=== PATIENT | female | born 1965 | race Caucasian/White ===

== ENCOUNTER 2020-09-07 09:45 | Outpatient (REF) | payer OTHER, SELFPAY ==
[2020-09-10 18:32] LABS: HPV mRNA E6/E7 rflx Not Detected (Not Detected)
== END 2020-09-07 09:46 | disposition home or self-care (01) ==
LOC: HO.LAB 09:45
PROVIDERS: PCP Nurse Practitioner Family; Visit Provider Advanced Practice Midwife
DX: Z12.4 Encounter for screening for malignant neoplasm of cervix (principal)
CPT/HCPCS: 36415; 87624; 88141; 88142

== ENCOUNTER 2020-09-21 13:17 | Outpatient (REF) | payer OTHER, SELFPAY ==
--- NOTE | 2020-09-21 13:22 | MM_ITS ---
EXAMINATION: MM SCREENING DIGITAL BREAST TOMOSYNTHESIS, BILATERAL CLINICAL INFORMATION: Screening. Asymptomatic. The lifetime risk of breast cancer based on the Tyrer-Cuzick Model is 20.3%. COMPARISON: Mammography: 05/13/2019, 09/15/2016 TECHNIQUE: Digital breast tomosynthesis is performed in both the craniocaudal and mediolateral oblique views along with computer-aided detection (CAD). Synthesized 2D images are generated from the tomosynthesis. FINDINGS: There are scattered areas of fibroglandular density (ACR BI-RADS breast composition Category b). There are no significant masses, abnormal calcifications, or other abnormalities. Parenchymal pattern is similar to prior studies. The skin contours are smooth. The axilla are unremarkable. MM/MM tomosynthesis screening BI IMPRESSION: No mammographic evidence of malignancy. ASSESSMENT: BI-RADS 1: Negative RECOMMENDATION: 1. Routine annual mammography screening. 2. The lifetime risk of breast cancer based on the Tyrer-Cuzick Model is 20.3%. Additional annual adjunct screening with breast MRI may be of benefit in women with a risk score of 20% or greater. This patient's information was entered into a reminder system with a target due date for their next mammogram.
== END 2020-09-21 13:18 | disposition home or self-care (01) ==
LOC: HO.MAMMO 13:17
PROVIDERS: PCP Nurse Practitioner Family; Visit Provider Nurse Practitioner Family
DX: Z12.31 Encounter for screening mammogram for malignant neoplasm of breast (principal)
CPT/HCPCS: 77063; 77067

== ENCOUNTER 2021-05-24 14:08 | Outpatient (REF) | payer OTHER, SELFPAY | END 2021-05-24 14:09 | disposition home or self-care (01) | LOC: HO.LNP 14:08 | PROVIDERS: Visit Provider Physician Assistant Medical | DX: Z20.822 Contact with and (suspected) exposure to COVID-19 (principal) | CPT/HCPCS: U0003; U0005 ==

== ENCOUNTER 2023-04-17 07:36 | Outpatient (REF) | payer OTHER, SELFPAY ==
[2023-04-17 11:53] LABS: MANUAL DIFF FLAG NO
[2023-04-17 11:54] LABS: Appearance Urine Clear; Color Urine Yellow; Glucose Urine UA Negative (Negative); Leukocyte Esterase Urine Negative (Negative); Nitrite Urine Negative (Negative); Specific Gravity - Urine <= 1.005 (1.005-1.025); Urine Blood Negative (Negative); Urine Ketones Negative (Negative); Urine Protein Negative (Neg-Trace)
[2023-04-17 12:00] LABS: Basophils Absolute Auto 0.1 X10*3/uL (0.0-0.2); Basophils Percent Auto 0.8 % (0-2); Eosinophils Absolute Auto 0.3 X10*3/uL (0.0-0.4); Eosinophils Percent Auto 3.8 % (0-4); Hematocrit 44.9 % (37.0-47.0); Hemoglobin 14.6 g/dl (12.0-16.0); Imm Gran Abs Auto 0.03 X10*3/uL (0.00-0.03); Imm Gran Pct Auto 0.4 % (0.0-0.4); Lymphocytes Absolute Auto 2.7 X10*3/uL (1.2-4.9); Lymphocytes Percent Auto 34.3 % (20-40); Mean Corpuscular HGB Conc 32.5 g/dl (31.0-35.0); Mean Corpuscular Hemoglobin 27.7 pg (27.0-33.0); Mean Platelet Volume 10.4 fL (9.4-12.3); Monocytes Absolute Auto 0.5 X10*3/uL (0.1-1.2); Monocytes Percent Auto 6.5 % (2-11); Neutrophils Absolute Auto 4.3 x10*3/uL (2.0-8.3); Neutrophils Percent Auto 54.2 % (45-73); Platelet Count 373 X10*3/uL (160-400); Red Blood Count 5.28 X10*6/uL (4.20-5.50); Red Cell Distribution Width 12.8 % (11.0-16.0)
[2023-04-17 12:11] LABS: Estimated Average Glucose 192 mg/dL; Hemoglobin A1c % 8.3 % (<6.0)
[2023-04-17 12:22] LABS: Alanine Aminotransferase 9 U/L (0-31); Albumin Level 3.9 g/dL (3.5-5.0); Alkaline Phosphatase 71 U/L (39-117); Anion Gap 12 (12-20); Aspartate Amino Transferase 12 U/L (5-31); Bilirubin Total 0.2 mg/dL (0.0-1.0); Blood Urea Nitrogen 9 mg/dL (9-16); Calcium 9.8 mg/dL (8.4-10.2); Carbon Dioxide 30 mmol/L (22-29); Chloride 102 mmol/L (96-108); Cholesterol 202 mg/dL (<200); Estimated Glomerular Filt Rate > 60; Glucose Fasting 213 mg/dL (60-99); HDL Cholesterol 59 mg/dL (>40); LDL Cholesterol Calculated 124 mg/dL (<100); Potassium 4.1 mmol/L (3.3-5.1); Sodium 140 mmol/L (135-145); Total Protein 6.7 g/dL (6.5-8.0); Triglycerides 95 mg/dL (<150)
[2023-04-17 12:34] LABS: Vitamin D 25-OH Total 38.5 ng/mL (>30)
[2023-04-17 12:56] LABS: Creatinine Urine 25.21 mg/dL; Microalbumin Urine < 5.0 mg/L
== END 2023-04-17 07:37 | disposition home or self-care (01) ==
LOC: HO.HMGCLDS 07:36
PROVIDERS: PCP Nurse Practitioner Family; Visit Provider Nurse Practitioner Family
DX: E11.9 Type 2 diabetes mellitus without complications (principal); E78.5 Hyperlipidemia, unspecified; Z78.0 Asymptomatic menopausal state
CPT/HCPCS: 36415; 80053; 80061; 81003; 82043; 82306; 83036; 84443; 85025

== ENCOUNTER 2023-06-27 08:35 | Outpatient (AMB) | payer OTHER, SELFPAY ==
[2023-06-27 08:50] VITALS: BP 112/70; PULSE 85; O2SAT 98; BMI 32.1
--- NOTE | 2023-06-27 08:50 | A.OFFPC_ITS ---
Vital Signs 06/27/23 08:50 Height 5 ft 3 in Weight 181 lb BMI 32.1 BP 112/70 Blood Pressure Location Lt brachial Position Sitting Pulse 85 Pulse Source Pulse Oximeter Pulse Oximetry (%) 98 Oxygen Delivery Method Room Air Intake Visit Reasons: follow up dm+ NEEDS PHQ9/THRIVE Allergies No Known Allergies [No Known Allergies*] Allergy (Verified 06/27/23 08:50) Medication List - Last Reconciled 06/27/23 by GORGE Castro blood sugar diagnostic As directed dulaglutide 4.5 mg (0.5 mL) subcut QWEEK 30 days fluoxetine 20 mg PO QAM 90 days metformin 1,000 mg PO BID pravastatin 10 mg PO BEDTIME Tobacco use date assessed: 06/27/23 Dental Screening Dental Screen Date: 06/27/23 Did you have a dental visit in the last 12 months?: No Was dental information given to patient?: Patient has dentist HPI follow up dm+ NEEDS PHQ9/THRIVE HPI Details Pt is a diabetic. Last A1C was 8.3, microalbumin is up to date. Denies polyuria, polydipsia, and neuropathy. Pt denies any signs and symptoms of hypoglycemia and does know how to correct it. Pt reports her blood sugar has been in the 90s-150s. Pt reports that she stopped taking atorvastatin. Will start pravastatin 10mg. Eye exam is scheduled. refuses flu/pneumo vaccines. FORMERLY [facility], [facility]–1983 Medical History Acute respiratory failure Intra-abdominal abscess Screening for cervical cancer Trigger thumb, left thumb Cortical age-related cataract of both eyes Diabetes Depression Dyslipidemia Surgical History H/O thumb surgery Leg fracture, left History of tubal ligation History of section Family History Father History of heart attack CVD (cardiovascular disease) Mother Myocardial infarction S/P triple vessel bypass S/P knee replacement Hip fracture CVD (cardiovascular disease) Macular degeneration History of high blood pressure Brother Type 2 diabetes mellitus Sister Type 2 diabetes mellitus Sister Breast cancer Other Substance use disorder Social History Housing: Apartment Alcohol intake: current Patient Tobacco Use Status: Current everyday Tobacco user (1 pack per month) Tobacco use type: Cigarette Cigarettes Per Day: 1 e-Cigarette/Vaping Use: Never Used Second Hand Smoke Exposure: No Current occupational status: employed Cognitive needs: No Hearing needs: No Vision needs: Yes Questionnaire PHQ-9 Over the last 2 weeks, how often have you been bothered by any of the following problems? 1. Little interest or pleasure in doing things: several days 2. Feeling down, depressed, or hopeless: several days 3. Trouble falling or staying asleep, or sleeping too much: several days 4. Feeling tired or having little energy: several days 5. Poor appetite or overeating: several days 6. Feeling bad about yourself - or that you are a failure or have let yourself or your family down: not at all 7. Trouble concentrating on things, such as reading the newspaper or watching television: not at all 8. Moving or speaking so slowly that other people could have noticed. Or the opposite - being so fidgety or restless that you have been moving around a lot more than usual: not at all 9. Thoughts that you would be better off or of hurting yourself in some way: not at all Total score: 5 Source: Developed by Drs. Edgardo Lazar, Jeanna Vázquez, Charles Barlow and colleagues, with an educational patel from [employer]. Thrive Questionnaire Date Thrive assessed: 06/27/23 I am a: Patient What is your living situation today?: I have a steady place to live Within the past 12 months, did the food you bought not last and you didn't have the money to get more?: Never true Within the past 12 months, did you worry whether your food would run out before you got money to buy more?: Never true Do you have trouble paying for medicines?: No Do you have trouble getting transportation to medical appointments?: I choose not to answer this question Do you have trouble paying your heating and electricity bill?: No Do you have trouble taking care of your child, family member or friend?: No Do you have trouble with day-to-day activities such as bathing, preparing meals, shopping, managing finances, etc.?: No Are you currently unemployed and looking for a job?: No Are you interested in more education?: No EDDIE-7 AMB Questionnaire EDDIE-7 Date EDDIE - 7 assessed: 06/27/23 Feeling nervous, anxious, or on edge: 1 = Several days Not being able to stop or control worryin = Not at all Worrying too much about different things: 1 = Several days Trouble relaxin = Not at all Being so restless that it is hard to sit still: 0 = Not at all Becoming easily annoyed or irritable: 1 = Several days Feeling afraid as if something awful might happen: 0 = Not at all Total EDDIE-7 score (0-4 normal; 5-9 mild; 10-14 moderate; 15-21 severe): 3 Source: Developed by Drs. Edgardo Lazar, Jeanna Vázquez, Charles Barlow and colleagues, with an educational patel from [employer]. Review of Systems Const Reports as per HPI Physical exam (Primary Care) Vital Signs: Last Vital Signs Pulse 85 06/27/23 08:50 BP 112/70 06/27/23 08:50 Pulse Ox 98 06/27/23 08:50 Oxygen Delivery Method Room Air 06/27/23 08:50 BMI result Body Mass Index 32.1 Tobacco/Smoking Status: Tobacco use Status Tobacco use date assessed 06/27/23 06/27/23 08:54 Patient Tobacco Use Status Current everyday Tobacco (1 06/27/23 08:54 pack per month) Tobacco use type Cigarette 06/27/23 08:54 e-Cigarette/Vaping Use Never Used 06/27/23 08:54 Thrive Assessment: Date of Thrive Assessment Date Thrive assessed 04/14/22 06/27/23 08:54 Const General: cooperative Nutritional Appearance: obese Orientation/consciousness: patient oriented x3 Neuro General: patient oriented x3 Extrem Other: bilat feet: + sensation with use of monofilament Psych Appearance: grossly normal Mental Status: mental status grossly normal Speech and movement: Normal speech and movement present Affect: normal affect Attitude: cooperative Thought process: Normal thought process present Thought content: Normal thought content present Insight: Good insight present (Psych) Judgement: Good judgement present (Psych) Assessment and Plan Assessment & Plan (1) Diabetes: Code(s): E11.9 - Type 2 diabetes mellitus without complications Plan: Labs ordered Plan The patient agreed to the use of a medical staff director for this encounter. Scribed for GORGE Madrigal by sal Cloud scribe, on 06/27/2023 at 09:10 EST. Orders: Orders Complete Blood Count Auto Diff Today E11.9 - Type 2 diabetes mellitus without complications TSH reflex Free T4 Today E11.9 - Type 2 diabetes mellitus without complications UA CC w/rflx Micro + Cult Today E11.9 - Type 2 diabetes mellitus without complications Comprehensive [place]. Panel Fast Today E11.9 - Type 2 diabetes mellitus without complications Lipid Panel Today E11.9 - Type 2 diabetes mellitus without complications Hemoglobin A1c Today E11.9 - Type 2 diabetes mellitus without complications Referrals Cologuard Test Z12.11 - Encounter for screening for malignant neoplasm of colon , Z12.12 - Encounter for screening for malignant neoplasm of rectum Medications: New pravastatin 10 mg PO BEDTIME 90 tabs 0RF Coding Level of Care Code Est Pt Level 3 (48076) Diagnoses Diabetes E11.9
== END 2023-06-27 09:28 | disposition home or self-care (01) ==
PROVIDERS: PCP Nurse Practitioner Family; Visit Provider Nurse Practitioner Family
DX: E11.9 Type 2 diabetes mellitus without complications (principal)
CPT/HCPCS: 99213

== ENCOUNTER 2023-06-27 09:28 | Outpatient (REF) | payer OTHER, SELFPAY ==
[2023-06-27 11:10] LABS: MANUAL DIFF FLAG NO
[2023-06-27 11:23] LABS: Estimated Average Glucose 163 mg/dL; Hemoglobin A1C 202.2529 umol/L; Hemoglobin A1c % 7.3 % (<6.0)
[2023-06-27 11:27] LABS: Basophils Absolute Auto 0.1 X10*3/uL (0.0-0.2); Basophils Percent Auto 0.7 % (0-2); Eosinophils Absolute Auto 0.2 X10*3/uL (0.0-0.4); Eosinophils Percent Auto 2.6 % (0-4); Hemoglobin 15.8 g/dl (12.0-16.0); Imm Gran Abs Auto 0.02 X10*3/uL (0.00-0.03); Imm Gran Pct Auto 0.2 % (0.0-0.4); Lymphocytes Absolute Auto 2.6 X10*3/uL (1.2-4.9); Mean Corpuscular HGB Conc 32.2 g/dl (31.0-35.0); Mean Corpuscular Hemoglobin 27.2 pg (27.0-33.0); Mean Corpuscular Volume 84.5 fL (80.0-98.0); Mean Platelet Volume 10.2 fL (9.4-12.3); Monocytes Absolute Auto 0.6 X10*3/uL (0.1-1.2); Monocytes Percent Auto 6.9 % (2-11); Neutrophils Absolute Auto 5.1 x10*3/uL (2.0-8.3); Neutrophils Percent Auto 59.6 % (45-73); Platelet Count 402 X10*3/uL (160-400); White Blood Count 8.5 X10*3/uL (4.8-10.8)
[2023-06-27 11:38] LABS: Alanine Aminotransferase 14 U/L (0-31); Albumin Level 4.5 g/dL (3.5-5.0); Alkaline Phosphatase 75 U/L (39-117); Anion Gap 16 (12-20); Aspartate Amino Transferase 15 U/L (5-31); Bilirubin Total 0.4 mg/dL (0.0-1.0); Blood Urea Nitrogen 8 mg/dL (9-16); Calcium 10.7 mg/dL (8.4-10.2); Carbon Dioxide 26 mmol/L (22-29); Chloride 106 mmol/L (96-108); Cholesterol 213 mg/dL (<200); Estimated Glomerular Filt Rate > 60; Glucose Fasting 166 mg/dL (60-99); HDL Cholesterol 51 mg/dL (>40); LDL Cholesterol Calculated 139 mg/dL (<100); Potassium 4.5 mmol/L (3.3-5.1); Sodium 143 mmol/L (135-145); Total Protein 7.5 g/dL (6.5-8.0); Triglycerides 117 mg/dL (<150)
[2023-06-27 11:47] LABS: Appearance Urine Clear; Color Urine Yellow; Glucose Urine UA Negative (Negative); Leukocyte Esterase Urine Negative (Negative); Nitrite Urine Negative (Negative); Urine Blood Negative (Negative); Urine Ketones Negative (Negative); Urine Protein Negative (Neg-Trace)
[2023-06-27 11:55] LABS: TSH reflex Free T4 1.52 uIU/mL (0.32-4.0)
== END 2023-06-27 09:29 | disposition home or self-care (01) ==
LOC: HO.HMGCLDS 09:28
PROVIDERS: PCP Nurse Practitioner Family; Visit Provider Nurse Practitioner Family
DX: E11.9 Type 2 diabetes mellitus without complications (principal)
CPT/HCPCS: 36415; 80053; 80061; 81003; 83036; 84443; 85025

== ENCOUNTER 2023-10-03 09:51 | Outpatient (AMB) | payer OTHER, SELFPAY ==
[2023-10-03 10:00] VITALS: BP 132/76; PULSE 86; O2SAT 98; BMI 32.1
--- NOTE | 2023-10-03 10:00 | A.OFFPC_ITS ---
Vital Signs 10/03/23 10:00 Height 5 ft 3 in Weight 181 lb 6 oz BMI 32.1 BP 132/76 Blood Pressure Location Lt brachial Position Sitting Pulse 86 Pulse Source Pulse Oximeter Pulse Oximetry (%) 98 Oxygen Delivery Method Room Air Intake Visit Reasons: 3 - 4 months follow up Intake Note: Pt is here to follow up for her DM Allergies No Known Allergies [No Known Allergies*] Allergy (Verified 10/03/23 10:03) Medication List - Last Reconciled 10/03/23 by GORGE Castro blood sugar diagnostic As directed dulaglutide 4.5 mg (0.5 mL) subcut QWEEK fluoxetine 20 mg PO QAM 90 days metformin 1,000 mg PO BID pravastatin 80 mg PO BEDTIME Tobacco use date assessed: 10/03/23 Dental Screening Dental Screen Date: 10/03/23 Did you have a dental visit in the last 12 months?: Yes Did you have a dental problem in the last 6 months where you did not have access to dental care?: No Was dental information given to patient?: Patient has dentist HPI 3 - 4 months follow up HPI Details Pt is a diabetic, on a statin. A1C in office today is 8.1. Microalbumin is up to date. Denies polyuria, polydipsia, and neuropathy. Pt denies any signs and symptoms of hypoglycemia and does know how to correct it. Pt's last lipids were elevated. Will increase pravastatin from 40mg to 80mg. Pt did not have her trulicity for approx 3 weeks, now back on medication. [facility] History Acute respiratory failure Intra-abdominal abscess Screening for cervical cancer Trigger thumb, left thumb Cortical age-related cataract of both eyes Diabetes Depression Dyslipidemia Surgical History H/O thumb surgery Leg fracture, left History of tubal ligation History of section Family History Father History of heart attack CVD (cardiovascular disease) Mother Myocardial infarction S/P triple vessel bypass S/P knee replacement Hip fracture CVD (cardiovascular disease) Macular degeneration History of high blood pressure Brother Type 2 diabetes mellitus Sister Type 2 diabetes mellitus Sister Breast cancer Other Substance use disorder Social History Housing: Apartment Alcohol intake: current Patient Tobacco Use Status: Current everyday Tobacco user (1 pack per month) Tobacco use type: Cigarette Cigarettes Per Day: 1 e-Cigarette/Vaping Use: Never Used Second Hand Smoke Exposure: No Current occupational status: employed Cognitive needs: No Hearing needs: No Vision needs: Yes Questionnaire PHQ-9 Over the last 2 weeks, how often have you been bothered by any of the following problems? 1. Little interest or pleasure in doing things: several days 2. Feeling down, depressed, or hopeless: several days 3. Trouble falling or staying asleep, or sleeping too much: several days 4. Feeling tired or having little energy: several days 5. Poor appetite or overeating: several days 6. Feeling bad about yourself - or that you are a failure or have let yourself or your family down: several days 7. Trouble concentrating on things, such as reading the newspaper or watching television: not at all 8. Moving or speaking so slowly that other people could have noticed. Or the opposite - being so fidgety or restless that you have been moving around a lot more than usual: not at all 9. Thoughts that you would be better off or of hurting yourself in some way: not at all Total score: 6 Source: Developed by Drs. Edgardo Lazar, Jeanna Vázquez, Charles Barlow and colleagues, with an educational patel from [employer]. Thrive Questionnaire Date Thrive assessed: 06/27/23 I am a: Patient What is your living situation today?: I have a steady place to live Within the past 12 months, did the food you bought not last and you didn't have the money to get more?: Never true Within the past 12 months, did you worry whether your food would run out before you got money to buy more?: Never true Do you have trouble paying for medicines?: No Do you have trouble getting transportation to medical appointments?: No Do you have trouble paying your heating and electricity bill?: I choose not to answer this question Do you have trouble taking care of your child, family member or friend?: No Do you have trouble with day-to-day activities such as bathing, preparing meals, shopping, managing finances, etc.?: No Are you currently unemployed and looking for a job?: No Are you interested in more education?: No THRIVE Score: 0 AUDIT C Alcohol Use Questionnaire (AUDIT-C) 1. How often do you have a drink containing alcohol?: Monthly or less 2. How many drinks containing alcohol do you have on a typical day when you are drinking?: 1 or 2 3. How often do you have six or more drinks on one occasion?: Never Total Score: 1 EDDIE-7 AMB Questionnaire EDDIE-7 Date EDDIE - 7 assessed: 10/03/23 Feeling nervous, anxious, or on edge: 1 = Several days Not being able to stop or control worryin = Several days Worrying too much about different things: 1 = Several days Trouble relaxin = Several days Being so restless that it is hard to sit still: 0 = Not at all Becoming easily annoyed or irritable: 0 = Not at all Feeling afraid as if something awful might happen: 0 = Not at all Total EDDIE-7 score (0-4 normal; 5-9 mild; 10-14 moderate; 15-21 severe): 4 Source: Developed by Drs. Edgardo Lazar, Jeanna Vázquez, Charles Barlow and colleagues, with an educational patel from [employer]. Review of Systems Const Reports as per HPI Physical exam (Primary Care) Vital Signs: Last Vital Signs Pulse 86 10/03/23 10:00 BP 132/76 10/03/23 10:00 Pulse Ox 98 10/03/23 10:00 Oxygen Delivery Method Room Air 10/03/23 10:00 BMI result Body Mass Index 32.1 Tobacco/Smoking Status: Tobacco use Status Tobacco use date assessed 10/03/23 10/03/23 10:05 Patient Tobacco Use Status Current everyday Tobacco (1 10/03/23 10:01 pack per month) Tobacco use type Cigarette 10/03/23 10:01 e-Cigarette/Vaping Use Never Used 10/03/23 10:01 PHQ-9: PHQ-9 Score PHQ-9: Total score 6 10/03/23 10:23 Thrive Assessment: Date of Thrive Assessment Date Thrive assessed 06/27/23 10/03/23 10:01 Const General: cooperative Nutritional Appearance: obese Orientation/consciousness: patient oriented x3 Resp Effort & Inspection: normal respiratory effort Auscultation: clear to auscultation bilaterally Cardio Rate: regular rate Rhythm: regular rhythm Heart sounds: S1 normal heart sound present and S2 normal heart sound present Neuro General: patient oriented x3 Extrem Other: feet are intact, + sensation with use of monofilament Psych Appearance: grossly normal Mental Status: mental status grossly normal Speech and movement: Normal speech and movement present Affect: normal affect Attitude: cooperative Thought process: Normal thought process present Thought content: Normal thought content present Insight: Good insight present (Psych) Judgement: Good judgement present (Psych) Results AMB Hemoglobin A1c AMB Hemoglobin A1c 8.1 % Last Edit by Marj Foster CMA on 10/03/23 10: 22 Results Reviewed Results Reviewed: Laboratory Last Values Hgb A1c (Clinic) 8.1 % (4.0-6.0) H 10/03/23 10:21 Assessment and Plan Assessment & Plan (1) Diabetes: Code(s): E11.9 - Type 2 diabetes mellitus without complications Plan: Labs ordered Plan The patient agreed to the use of a medical center director for this encounter. Scribed for GORGE Madrigal by Deneen Pan medical center director, on 10/03/2023 at 10:15 EST. Orders: Orders Comprehensive [place]. Panel Fast Today E11.9 - Type 2 diabetes mellitus without complications AMB Hemoglobin A1c Today E11.9 - Type 2 diabetes mellitus without complications Complete Blood Count Auto Diff Today E11.9 - Type 2 diabetes mellitus without complications TSH reflex Free T4 Today E11.9 - Type 2 diabetes mellitus without complications UA CC w/rflx Micro + Cult Today E11.9 - Type 2 diabetes mellitus without complications Lipid Panel Today E11.9 - Type 2 diabetes mellitus without complications Medications: Changed From pravastatin 40 mg PO BEDTIME 90 tabs 0RF To pravastatin 80 mg PO BEDTIME 90 tabs 0RF Coding Level of Care Code Est Pt Level 3 (60224) Diagnoses Diabetes E11.9
== END 2023-10-03 10:32 | disposition home or self-care (01) ==
PROVIDERS: PCP Nurse Practitioner Family; Visit Provider Nurse Practitioner Family
DX: E11.9 Type 2 diabetes mellitus without complications (principal)
CPT/HCPCS: 83036; 99213

== ENCOUNTER 2024-02-05 11:23 | Outpatient (AMB) | payer OTHER, SELFPAY ==
--- NOTE | 2024-02-05 11:32 | A.OFFPC_ITS ---
Vital Signs 02/05/24 11:37 Height 5 ft 3 in Weight 182 lb BMI 32.2 BP 122/80 Blood Pressure Location Rt brachial Position Sitting Pulse 76 Pulse Source Pulse Oximeter Pulse Oximetry (%) 98 Oxygen Delivery Method Room Air Intake Visit Reasons: DM f/u Intake Note: Patient here for diabetes f/u. Allergies No Known Allergies [No Known Allergies*] Allergy (Verified 02/05/24 11:38) Medication List - Last Reconciled 02/05/24 by GORGE Castro blood sugar diagnostic As directed dulaglutide 3 mg (0.5 mL) subcut QWEEK fluoxetine 20 mg PO QAM 90 days metformin 1,000 mg PO BID pravastatin 80 mg PO BEDTIME Tobacco use date assessed: 10/03/23 Dental Screening Dental Screen Date: 10/03/23 HPI DM f/u HPI Details Pt is a diabetic, on a statin. A1C in office today is 9.1. Microalbumin is up to date. Denies polyuria, polydipsia, and neuropathy. Pt denies any signs and symptoms of hypoglycemia and does know how to correct it. Encouraged pt to have labs drawn. Pt reports being off of trulicity due to supply issues. Will send [id number]. [facility] Medical History Acute respiratory failure Intra-abdominal abscess Screening for cervical cancer Trigger thumb, left thumb Cortical age-related cataract of both eyes Diabetes Depression Dyslipidemia Surgical History H/O thumb surgery Leg fracture, left History of tubal ligation History of section Family History Father History of heart attack CVD (cardiovascular disease) Mother Myocardial infarction S/P triple vessel bypass S/P knee replacement Hip fracture CVD (cardiovascular disease) Macular degeneration History of high blood pressure Brother Type 2 diabetes mellitus Sister Type 2 diabetes mellitus Sister Breast cancer Other Substance use disorder Social History Housing: Apartment Alcohol intake: current Patient Tobacco Use Status: Current everyday Tobacco user (1 pack per month) Tobacco use type: Cigarette Cigarettes Per Day: 1 e-Cigarette/Vaping Use: Never Used Second Hand Smoke Exposure: No Current occupational status: employed Cognitive needs: No Hearing needs: No Vision needs: Yes Questionnaire Thrive Questionnaire Date Thrive assessed: 06/27/23 AUDIT C Alcohol Use Questionnaire (AUDIT-C) 1. How often do you have a drink containing alcohol?: Monthly or less 2. How many drinks containing alcohol do you have on a typical day when you are drinking?: 1 or 2 3. How often do you have six or more drinks on one occasion?: Never Total Score: 1 Score Reviewed/Action Taken: No EDDIE-7 AMB Questionnaire EDDIE-7 Date EDDIE - 7 assessed: 10/03/23 Source: Developed by Drs. Edgardo Lazar, Jeanna Vázquez, Charles Barlow and colleagues, with an educational patel from [employer]. Review of Systems Const Reports as per HPI Physical exam (Primary Care) Vital Signs: Last Vital Signs Pulse 76 02/05/24 11:37 BP 122/80 02/05/24 11:37 Pulse Ox 98 02/05/24 11:37 Oxygen Delivery Method Room Air 02/05/24 11:37 BMI result Body Mass Index 32.2 Tobacco/Smoking Status: Tobacco use Status Tobacco use date assessed 10/03/23 02/05/24 11:33 Patient Tobacco Use Status Current everyday Tobacco (1 02/05/24 11:33 pack per month) Tobacco use type Cigarette 02/05/24 11:33 e-Cigarette/Vaping Use Never Used 02/05/24 11:33 Thrive Assessment: Date of Thrive Assessment Date Thrive assessed 06/27/23 02/05/24 11:33 Const General: cooperative Nutritional Appearance: obese Orientation/consciousness: patient oriented x3 Resp Effort & Inspection: normal respiratory effort Auscultation: clear to auscultation bilaterally Cardio Rate: regular rate Rhythm: regular rhythm Heart sounds: S1 normal heart sound present and S2 normal heart sound present Neuro General: patient oriented x3 Extrem Other: bilat feet: + sensation with use of monofilament, small corn between left toes 4 and 5, feet intact Psych Appearance: grossly normal Mental Status: mental status grossly normal Speech and movement: Normal speech and movement present Affect: normal affect Attitude: cooperative Thought process: Normal thought process present Thought content: Normal thought content present Insight: Good insight present (Psych) Judgement: Good judgement present (Psych) Results AMB Hemoglobin A1c AMB Hemoglobin A1c 9.1 % Last Edit by BRYANT Campuzano on 02/05/24 12 :30 Results Reviewed Results Reviewed: Laboratory Last Values Hgb A1c (Clinic) 9.1 % (4.0-6.0) H 02/05/24 12:29 Assessment and Plan Assessment & Plan (1) Diabetes: Code(s): E11.9 - Type 2 diabetes mellitus without complications Plan The patient agreed to the use of a medical record librarians teacher for this encounter. Scribed for GORGE Madrigal by Deneen Pan medical record librarians teacher, on 02/05/2024 at 11:50 EST. Orders: Orders Microalbumin, Random (w Creat) Today E11.9 - Type 2 diabetes mellitus without complications AMB Hemoglobin A1c Today Z13.9 - Encounter for screening, unspecified Medications: New tirzepatide (Mounjaro) 2.5 mg (0.5 mL) subcut QWEEK 2 mL 0RF 4 weeks Discontinued dulaglutide Discontinued Reason: Doctor's Order 3 mg (0.5 mL) subcut QWEEK 2 mL 1RF Coding Level of Care Code Est Pt Level 3 (89244) Diagnoses Diabetes E11.9
[2024-02-05 11:37] VITALS: BP 122/80; PULSE 76; O2SAT 98; BMI 32.2
== END 2024-02-05 13:32 | disposition home or self-care (01) ==
PROVIDERS: PCP Nurse Practitioner Family; Visit Provider Nurse Practitioner Family
DX: E11.9 Type 2 diabetes mellitus without complications (principal)
CPT/HCPCS: 83036; 99213

== ENCOUNTER 2024-05-15 14:49 | Outpatient (AMB) | payer OTHER, SELFPAY ==
[2024-05-15 14:59] VITALS: BP 140/80; PULSE 83; O2SAT 97; BMI 32.2
--- NOTE | 2024-05-15 14:59 | A.OFFPC_ITS ---
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 Will order labs. Cologuard is up to date. Due for mammo, pt reports being already scheduled for in august. Pt is a diabetic, sees endo. No visual insurance currently. Pt has been smoking up to a pack a day since age 16. Will refer for low-dose CT. [facility] Medical History Acute respiratory failure Intra-abdominal abscess Screening for cervical cancer Trigger thumb, left thumb Cortical age-related cataract of both eyes Diabetes Depression Dyslipidemia Surgical History H/O thumb surgery Leg fracture, left History of tubal ligation History of section Family History Father History of heart attack CVD (cardiovascular disease) Mother Myocardial infarction S/P triple vessel bypass S/P knee replacement Hip fracture CVD (cardiovascular disease) Macular degeneration History of high blood pressure Brother Type 2 diabetes mellitus Sister Type 2 diabetes mellitus Sister Breast cancer Other Substance use disorder Social History Housing: Apartment Alcohol intake: current Patient Tobacco Use Status: Current everyday Tobacco user Tobacco use type: Cigarette Cigarettes Per Day: 1 e-Cigarette/Vaping Use: Never Used Second Hand Smoke Exposure: No Current occupational status: employed Cognitive needs: No Hearing needs: No Vision needs: Yes Questionnaire PHQ-9 Over the last 2 weeks, how often have you been bothered by any of the following problems? 1. Little interest or pleasure in doing things: not at all 2. Feeling down, depressed, or hopeless: not at all 3. Trouble falling or staying asleep, or sleeping too much: several days 4. Feeling tired or having little energy: not at all 5. Poor appetite or overeating: not at all 6. Feeling bad about yourself - or that you are a failure or have let yourself or your family down: not at all 7. Trouble concentrating on things, such as reading the newspaper or watching television: not at all 8. Moving or speaking so slowly that other people could have noticed. Or the opposite - being so fidgety or restless that you have been moving around a lot more than usual: not at all 9. Thoughts that you would be better off or of hurting yourself in some way: not at all Total score: 1 Depression Screening Interpretation: Negative Depression Screening Done: Yes 70291 - PHQ-9 Billing: Yes Source: Developed by Drs. Edgardo Lazar, Jeanna Vázquez, Charles Barlow and colleagues, with an educational patel from [employer]. Thrive Questionnaire Date Thrive assessed: 05/15/24 I am a: Patient What is your living situation today?: I have a steady place to live Within the past 12 months, did the food you bought not last and you didn't have the money to get more?: I choose not to answer this question Within the past 12 months, did you worry whether your food would run out before you got money to buy more?: I choose not to answer this question Do you have trouble paying for medicines?: No Do you have trouble getting transportation to medical appointments?: No Do you have trouble paying your heating and electricity bill?: No Do you have trouble taking care of your child, family member or friend?: No Do you have trouble with day-to-day activities such as bathing, preparing meals, shopping, managing finances, etc.?: No Are you currently unemployed and looking for a job?: No Are you interested in more education?: No Please select the resources that you would like help with: None Currently or been in a relationship where the following occur: No concerns reported THRIVE Score: 0 AUDIT C Alcohol Use Questionnaire (AUDIT-C) 1. How often do you have a drink containing alcohol?: Monthly or less 2. How many drinks containing alcohol do you have on a typical day when you are drinking?: 1 or 2 3. How often do you have six or more drinks on one occasion?: Never Total Score: 1 Score Reviewed/Action Taken: Yes EDDIE-7 AMB Questionnaire EDDIE-7 Date EDDIE - 7 assessed: 05/15/24 Feeling nervous, anxious, or on edge: 1 = Several days Not being able to stop or control worryin = Not at all Worrying too much about different things: 0 = Not at all Trouble relaxin = Not at all Being so restless that it is hard to sit still: 0 = Not at all Becoming easily annoyed or irritable: 0 = Not at all Feeling afraid as if something awful might happen: 0 = Not at all Total EDDIE-7 score (0-4 normal; 5-9 mild; 10-14 moderate; 15-21 severe): 1 Source: Developed by Drs. Edgardo Lazar, Jeanna Vázquez, Charles Barlow and colleagues, with an educational patel from [employer]. EDDIE-7 Assessment Billing EDDIE-7 Assessment Tool: EDDIE-7 Assessment 63395 Review of Systems Const Denies chills and Denies fever(s) Eyes Denies blurry vision ENT Denies vertigo, Denies dizziness and Denies sore throat Card Denies chest pain at rest, Denies chest pain with activity, Denies diaphoresis, Denies dyspnea and Denies dyspnea on exertion Resp Denies cough, Denies dyspnea, Denies dyspnea on exertion and Denies wheezing GI Denies abdominal pain, Denies melena, Denies hematochezia, Denies constipation, Denies diarrhea and Denies loose stools Denies hematuria Musc Denies numbness and Denies tingling Skin/Breast Denies lesions Neuro Denies vertigo, Denies dizziness, Denies numbness and Denies tingling Psych Denies anxiety, Denies depression, Denies homicidal ideation, Denies suicidal ideation and Denies other (substance abuse) Aller/Immun Denies wheezing Physical exam (Primary Care) Vital Signs: Last Vital Signs Pulse 83 05/15/24 14:59 BP 140/80 H 05/15/24 14:59 Pulse Ox 97 05/15/24 14:59 Oxygen Delivery Method Room Air 05/15/24 14:59 BMI result Body Mass Index 32.2 Tobacco/Smoking Status: Tobacco use Status Tobacco use date assessed 10/03/23 05/15/24 15:00 Patient Tobacco Use Status Current everyday Tobacco 05/15/24 15:00 Tobacco use type Cigarette 05/15/24 15:00 e-Cigarette/Vaping Use Never Used 05/15/24 15:00 PHQ-9: PHQ-9 Score PHQ-9: Total score 1 05/15/24 15:19 Depression Screening Interpretation: Negative Thrive Assessment: Date of Thrive Assessment Date Thrive assessed 05/15/24 05/15/24 15:00 Currently or been in a relationship where the following occur: No concerns reported Const General: cooperative Nutritional Appearance: well nourished Orientation/consciousness: patient oriented x3 HENMT Head: Yes normal to inspection, Yes normocephalic and Yes atraumatic Ears: TM's normal bilaterally Eyes General: appearance normal, both eyes and all related structures Alignment and Position: alignment normal and position normal Neck Neck: Yes normal visual inspection, Yes no lymphadenopathy and Yes supple Resp Effort & Inspection: normal respiratory effort Auscultation: clear to auscultation bilaterally Cardio Rate: regular rate Rhythm: regular rhythm Heart sounds: S1 normal heart sound present, S2 normal heart sound present and no murmurs GI Palpation (GI): Soft to palpation and nontender Auscultation: normal bowel sounds Skin Rashes: no rashes Neuro General: patient oriented x3, moves all extremities, no focal motor deficits and deep tendon reflexes 2+ bilaterally Romberg Test: Negative Extrem Other: bilat feet: + sensation with use of monofilament, feet intact Psych Appearance: grossly normal Mental Status: mental status grossly normal Speech and movement: Normal speech and movement present Affect: normal affect Attitude: cooperative Thought process: Normal thought process present Thought content: Normal thought content present Insight: Good insight present (Psych) Judgement: Good judgement present (Psych) Results AMB Hemoglobin A1c AMB Hemoglobin A1c 7.9 % Last Edit by Sherwin Sierra CMA on 05/15/24 15: 27 Results Reviewed Results Reviewed: Laboratory Last Values Hgb A1c (Clinic) 7.9 % (4.0-6.0) H 05/15/24 15:26 Assessment and Plan Assessment & Plan (1) Diabetes: Code(s): E11.9 - Type 2 diabetes mellitus without complications Plan: Seeing endo tomorrow, adding losartan (2) Physical exam: Code(s): Z00.00 - Encounter for general adult medical examination without abnormal findings Plan: Labs ordered (3) Smoker: Code(s): F17.200 - Nicotine dependence, unspecified, uncomplicated Plan: LDCT Plan The patient agreed to the use of a medical records administrator for this encounter. Scribed for GORGE Madrigal by Deneen Pan medical records administrator, on 05/15/2024 at 15:15 EST. Orders: Orders TSH reflex Free T4 Today E11.9 - Type 2 diabetes mellitus without complications, Z00.00 - Encounter for general adult medical examination without abnormal findings Microalbumin, Random (w Creat) Today E11.9 - Type 2 diabetes mellitus without complications, Z00.00 - Encounter for general adult medical examination without abnormal findings Complete Blood Count Auto Diff Today E11.9 - Type 2 diabetes mellitus without complications, Z00.00 - Encounter for general adult medical examination without abnormal findings Comprehensive [place]. Panel Fast Today E11.9 - Type 2 diabetes mellitus without complications, Z00.00 - Encounter for general adult medical examination without abnormal findings UA CC w/rflx Micro + Cult Today E11.9 - Type 2 diabetes mellitus without complications, Z00.00 - Encounter for general adult medical examination without abnormal findings Lipid Panel Today E11.9 - Type 2 diabetes mellitus without complications, Z00.00 - Encounter for general adult medical examination without abnormal findings AMB Hemoglobin A1c Today Z13.9 - Encounter for screening, unspecified Referrals Lung Cancer Screening Referral F17.200 - Nicotine dependence, unspecified, uncomplicated Medications: New losartan 25 mg PO DAILY 90 tabs 0RF Refilled tirzepatide (Mounjaro) 2.5 mg (0.5 mL) subcut QWEEK 2 mL 0RF 4 weeks Coding Level of Care Code Est Pt Prev Care 40-64y(51914) Diagnoses Diabetes E11.9 Physical exam Z00.00 Smoker F17.200 Additional Codes EDDIE-7 Assessment Billing - EDDIE-7 Assessment Tool: EDDIE-7 Assessment 92035 ([id number])
== END 2024-05-15 15:48 | disposition home or self-care (01) ==
PROVIDERS: PCP Nurse Practitioner Family; Visit Provider Nurse Practitioner Family
DX: E11.9 Type 2 diabetes mellitus without complications (principal); Z00.00 Encounter for general adult medical examination without abnormal findings; F17.200 Nicotine dependence, unspecified, uncomplicated; Z13.9 Encounter for screening, unspecified

== ENCOUNTER → 2024-05-15 14:49 | Outpatient (BNVA) | payer OTHER, SELFPAY | PROVIDERS: PCP Nurse Practitioner Family; Visit Provider Nurse Practitioner Family | DX: Z00.00 Encounter for general adult medical examination without abnormal findings (principal); E11.9 Type 2 diabetes mellitus without complications; F17.200 Nicotine dependence, unspecified, uncomplicated; Z71.6 Tobacco abuse counseling | CPT/HCPCS: 83036; 96127; 99396 ==

== ENCOUNTER 2024-10-22 15:18 | Outpatient (AMB) | payer OTHER, SELFPAY ==
[2024-10-22 15:25] VITALS: BP 122/80; PULSE 86; TEMP 36.7; O2SAT 98; BMI 33.3
--- NOTE | 2024-10-22 15:25 | MHC.PC.OV ---
Vital Signs 10/22/24 15:25 Height 5 ft 3 in Weight 188 lb BMI 33.3 BP 122/80 Blood Pressure Location Lt brachial Position Sitting Pulse 86 Pulse Source Pulse Oximeter Temp 98.0 F Temp Source Oral Pulse Oximetry (%) 98 Intake Visit Reasons: DM follow up Allergies empagliflozin [From Jardiance] Adverse Reaction (Mild, Verified 10/22/24 15:57) Nausea Medication List - Last Reconciled 10/22/24 by LEROY Castro blood sugar diagnostic As directed fluoxetine 20 mg PO QAM 90 days FreeStyle Lite Strips (blood sugar diagnostic) Test blood sugar once a day NS losartan 25 mg PO DAILY metformin 1,000 mg PO BID pravastatin 80 mg PO BEDTIME tirzepatide (Mounjaro) 2.5 mg (0.5 mL) subcut QWEEK Tobacco use date assessed: 10/22/24 Dental Screening Dental Screen Date: 10/22/24 Did you have a dental visit in the last 12 months?: Yes Did you have a dental problem in the last 6 months where you did not have access to dental care?: No Was dental information given to patient?: Patient has dentist HPI DM follow up HPI Details Chief Complaint I am experiencing difficulty managing my diabetes and have ongoing neck pain with radiculopathy. History of Present Illness The patient is a 58-year-old female presenting with difficulties in managing her Type 2 Diabetes Mellitus and symptoms indicative of cervical radiculopathy. Concerning her diabetes, her Hemoglobin A1c has escalated to 12.4 despite prior medication adjustments. She previously attempted therapy with Jardiance but experienced significant adverse effects, such as nausea, necessitating discontinuation. There is currently infrequent monitoring of blood glucose levels. The patient has polydipsia and polyuria, yet denies any neuropathy. In terms of her cervical symptoms, they include neck pain radiating to her left shoulder and occasionally to the left upper extremity. The Spurling's test is positive for radiculopathy, exacerbated by certain head and neck movements, notably with rotation and flexion. These symptoms align with cervical spine involvement, causing considerable discomfort. Social History - Not explicitly discussed in the conversation. Health Maintenance - Scheduled upcoming eye examination for diabetes-related complications. Review of Systems - Musculoskeletal: Reports neck pain with radiculopathy down the left shoulder. - Endocrine: Reports polydipsia and polyuria. - Neurological: Denies neuropathy. Physical Exam General: Cooperative, healthy appearing, comfortable, no acute distress and well developed Orientation: Patient oriented x3 Limitations: No limitations Head: Normal to inspection Ears: Hearing grossly normal bilaterally Nose: Normal external nose present Face and sinus: Normal facial exam Eyes: Appearance normal, both eyes and all related structures Neck: Normal visual inspection and Yes full ROM, reports ongoing cervical neck pain with radiculopathy down to the left shoulder and left upper extremity with neck flexion to the left and chin raises. Positive Spurling's test with pain on neck flexion to the left. Respiratory: Normal respiratory effort and able to speak in complete sentences. Clear to auscultation bilaterally Cardiovascular: Regular rate and rhythm. Normal S1 and S2 GI: Normal to inspection. Soft to palpation and nontender Skin: No rashes or lesions noted Neuro: Patient oriented x3, + radiculopathy. Extremities: Normal to inspection, reports radiculopathy down left upper extremity. Results - Labs: Hemoglobin A1c reported at 12.4. Plan -encouraged pt to get her labs drawn - Discontinue Jardiance due to intolerable side effects. - Initiate Mounjaro and commence Lantus insulin at 10 units nightly for improved glycemic control. - Educate on daily blood glucose monitoring. - Address and manage cervical radiculopathy symptomatology with potential follow-up for further orthopedic evaluation if symptoms persist or worsen. Discussion Notes I discussed at length with the patient the implications of her elevated Hemoglobin A1c and its impact on her diabetes management. We explored alternative therapies resulting in the decision to discontinue Jardiance and commence treatment with Mounjaro, alongside initiating Lantus insulin. I emphasized the importance of daily glucose monitoring and its role in optimizing treatment efficacy. We also reviewed hypoglycemia symptoms and corrective actions. For her cervical radiculopathy, I advised on neck movements that could alleviate discomfort and suggested close monitoring of symptoms with potential escalation to specialist referral if progression occurs. Patient Instructions - Begin daily blood glucose monitoring. - Administer 10 units of Lantus each evening. - Monitor for signs of hypoglycemia and use corrective action if necessary. - Follow through with the scheduled eye exam. - Be attentive to neck pain and avoid movements that exacerbate symptoms. Contact our office if symptoms intensify. [facility] Medical History Acute respiratory failure Intra-abdominal abscess Screening for cervical cancer Trigger thumb, left thumb Cortical age-related cataract of both eyes Diabetes Depression Dyslipidemia Surgical History H/O thumb surgery Leg fracture, left History of tubal ligation History of section Family History Father History of heart attack CVD (cardiovascular disease) Mother Myocardial infarction S/P triple vessel bypass S/P knee replacement Hip fracture CVD (cardiovascular disease) Macular degeneration History of high blood pressure Brother Type 2 diabetes mellitus Sister Type 2 diabetes mellitus Sister Breast cancer Other Substance use disorder Social History Housing: Apartment Alcohol intake: current Patient Tobacco Use Status: Current everyday Tobacco user Tobacco use type: Cigarette Cigarettes Per Day: 1 e-Cigarette/Vaping Use: Never Used Second Hand Smoke Exposure: No Current occupational status: employed Cognitive needs: No Hearing needs: No Vision needs: Yes Questionnaire PHQ-9 Over the last 2 weeks, how often have you been bothered by any of the following problems? 1. Little interest or pleasure in doing things: not at all 2. Feeling down, depressed, or hopeless: not at all 3. Trouble falling or staying asleep, or sleeping too much: several days 4. Feeling tired or having little energy: several days 5. Poor appetite or overeating: not at all 6. Feeling bad about yourself - or that you are a failure or have let yourself or your family down: not at all 7. Trouble concentrating on things, such as reading the newspaper or watching television: not at all 8. Moving or speaking so slowly that other people could have noticed. Or the opposite - being so fidgety or restless that you have been moving around a lot more than usual: not at all 9. Thoughts that you would be better off or of hurting yourself in some way: not at all Total score: 2 Depression Screening Interpretation: Negative Depression Screening Done: Yes 20192 - PHQ-9 Billing: Yes Source: Developed by Drs. Edgardo Lazar, Jeanna Vázquez, Charles Barlow and colleagues, with an educational patel from [employer]. Thrive Questionnaire Date Thrive assessed: 10/22/24 I am a: Patient What is your living situation today?: I have a steady place to live Within the past 12 months, did the food you bought not last and you didn't have the money to get more?: Sometimes True Within the past 12 months, did you worry whether your food would run out before you got money to buy more?: Sometimes True Do you have trouble paying for medicines?: No Do you have trouble getting transportation to medical appointments?: No Do you have trouble paying your heating and electricity bill?: No Do you have trouble taking care of your child, family member or friend?: No Do you have trouble with day-to-day activities such as bathing, preparing meals, shopping, managing finances, etc.?: No Are you currently unemployed and looking for a job?: No Are you interested in more education?: No Please select the resources that you would like help with: None Currently or been in a relationship where the following occur: No concerns reported THRIVE Score: 2 AUDIT C Alcohol Use Questionnaire (AUDIT-C) 1. How often do you have a drink containing alcohol?: Monthly or less 2. How many drinks containing alcohol do you have on a typical day when you are drinking?: 1 or 2 3. How often do you have six or more drinks on one occasion?: Never Total Score: 1 Score Reviewed/Action Taken: Yes EDDIE-7 AMB Questionnaire EDDIE-7 Date EDDIE - 7 assessed: 10/22/24 Feeling nervous, anxious, or on edge: 0 = Not at all Not being able to stop or control worryin = Not at all Worrying too much about different things: 0 = Not at all Trouble relaxin = Not at all Being so restless that it is hard to sit still: 0 = Not at all Becoming easily annoyed or irritable: 0 = Not at all Feeling afraid as if something awful might happen: 0 = Not at all Total EDDIE-7 score (0-4 normal; 5-9 mild; 10-14 moderate; 15-21 severe): 0 Source: Developed by Drs. Edgardo Lazar, Charles Armando and colleagues, with an educational patel from [employer]. EDDIE-7 Assessment Billing EDDIE-7 Assessment Tool: EDDIE-7 Assessment 31799 Physical exam (Primary Care) Vital Signs: Last Vital Signs Temp 98.0 F 10/22/24 15:25 Pulse 86 10/22/24 15:25 BP 122/80 10/22/24 15:25 Pulse Ox 98 10/22/24 15:25 BMI result Body Mass Index 33.3 Tobacco/Smoking Status: Tobacco use Status Tobacco use date assessed 10/22/24 10/22/24 15:26 Patient Tobacco Use Status Current everyday Tobacco 10/22/24 15:26 Tobacco use type Cigarette 10/22/24 15:26 e-Cigarette/Vaping Use Never Used 10/22/24 15:26 PHQ-9: PHQ-9 Score PHQ-9: Total score 2 10/22/24 15:26 Depression Screening Interpretation: Negative Thrive Assessment: Date of Thrive Assessment Date Thrive assessed 10/22/24 10/22/24 15:26 Currently or been in a relationship where the following occur: No concerns reported Results AMB Hemoglobin A1c AMB Hemoglobin A1c 12.4 % Last Edit by Sherwin Sierra CMA on 10/22/24 16:08 Results Reviewed Results Reviewed: Laboratory Last Values Hgb A1c (Clinic) 12.4 % (4.0-6.0) H 10/22/24 16:07 Coding Level of Care Code Est Pt Level 3 (03778) Diagnoses Radiculopathy of cervical spine M54.12 Uncontrolled diabetes mellitus with hyperglycemia E11.65 Diabetes E11.9 Additional Codes EDDIE-7 Assessment Billing - EDDIE-7 Assessment Tool: EDDIE-7 Assessment 93800 ([id number]) PHQ-9 - 81096 - PHQ-9 Billing: Yes ([id number]) Assessment & Plan Assessment & Plan (1) Radiculopathy of cervical spine: Code(s): M54.12 - Radiculopathy, cervical region Category: Medical (2) Uncontrolled diabetes mellitus with hyperglycemia: Code(s): E11.65 - Type 2 diabetes mellitus with hyperglycemia Category: Medical (3) Diabetes: Code(s): E11.9 - Type 2 diabetes mellitus without complications Category: Medical Plan . Orders: Orders MM screening mammo BI Today Z12.31 - Encounter for screening mammogram for malignant neoplasm of breast AMB Hemoglobin A1c Today Z13.9 - Encounter for screening, unspecified XR cervical spine 2V Today M54.12 - Radiculopathy, cervical region Medications: New tirzepatide (Mounjaro) for 4 weeks 2.5 mg (0.5 mL) subcut QWEEK 2 mL 1RF insulin glargine (Lantus Solostar U-100 Insulin) 10 units (0.1 mL) subcut QPM 15 mL 0RF pen needle, diabetic (BD Ultra-Fine Short Pen Needle) for diabetes, once a day 100 ea 0RF Discontinued tirzepatide (Mounjaro) for 4 weeks (instead of trulicity) Discontinued Reason: Duplicate 2.5 mg (0.5 mL) subcut QWEEK 2 mL 0RF empagliflozin (Jardiance) Discontinued Reason: Doctor's Order 10 mg PO DAILY 30 tabs 3RF
--- OUTSIDE RECORDS SUMMARY | 2024-10-22 19:04 | XMS_ITS | Clinical Summary ---
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 Role Phone Unavailable Primary Care Provider Unavailabl e Surgical History Surgery Date Site/Laterality Comments SECTION PROCEDURE: [place] DELIVERY ONLY CHOLECYSTECTOMY PROCEDURE: [place] LAPAROSCOPY SURG CHOLECYSTECTOMY Family History Medical History Relation Name Comments Heart failure Father Relation Name Status Comments Father Mother Social History Tobacco Use Types Packs/Day Years Used Date Smoking Tobacco: Former Smokeless Tobacco: Never Alcohol Use Standard Drinks/Week Comments Not Currently 0 (1 standard drink = 0.6 oz pur e alcohol) Comments Unknown Sex and Gender Information Value Date Recorded Sex Assigned at Not on file Legal Sex Female 1:35 AM EST Gender Identity Not on file Sexual Orientation Not on file Obstetrics History Last Filed Vital Signs Vital Sign Reading Time Taken Comments Blood Pressure 126/72 11/09/2021 10:40 AM EDT Pulse 78 11/09/2021 10:40 AM EDT Temperature - - Respiratory Rate - - Oxygen Saturation - - Inhaled Oxygen Concentration - - Weight 82.6 kg (182 lb) 11/09/2021 10:40 AM EDT Height 162.6 cm (5' 4 ) 11/09/2021 10:40 AM EDT Body Mass Index 31.24 11/09/2021 10:40 AM EDT Plan of Treatment Health Maintenance Due Date Last Done Comments Breast Cancer Screening 1965 DTaP,Tdap,and Td Vaccines (1 - Tdap) 1984 Hepatitis B Vaccines (1 of 3 - 19+ 3-dose series) 1984 Cervical Cancer Screening: P ap Smear 1986 Pneumococcal Vaccine: 50+ Ye ars (1 of 1 - PCV) 12/28/2015 Zoster Vaccines (1 of 2) 12/28/2015 Colorectal Cancer Screening: Colonoscopy 07/31/2022 Depression Screening 07/31/2022 HIV Screening 07/31/2022 Hepatitis C Screening 07/31/2022 Social Influencers of Health Screening 07/31/2022 COVID-19 Vaccine (2023-2 5 season) 2024 Influenza Vaccine (#1) 2024 HIB Vaccines Aged Out No longer eligi ble based on patient's age to complete this topic HPV Vaccines Aged Out No longer eligi ble based on patient's age to complete this topic Hepatitis A Vaccines Aged Out No long er eligible based on patient's age to complete this topic IPV Vaccines Aged Out No longer eligi ble based on patient's age to complete this topic MMR Vaccines Aged Out No longer eligi ble based on patient's age to complete this topic Meningococcal ACWY Vaccine Aged Out N o longer eligible based on patient's age to complete this topic Meningococcal B Vacine Aged Out No lo nger eligible based on patient's age to complete this topic Pneumococcal Vaccine: Pediat rics (0 to 5 Years) and At-Risk Patients (6 to 64 Years) Aged Out No longer eligible b ased on patient's age to complete this topic RSV Immunization Patients Un leanna 20 months Aged Out No longer eligible b ased on patient's age to complete this topic Varicella Vaccines Aged Out No longer eligible based on patient's age to complete this topic
== END 2024-10-22 16:25 | disposition home or self-care (01) ==
PROVIDERS: PCP Nurse Practitioner Family; Visit Provider Nurse Practitioner Family
DX: M54.12 Radiculopathy, cervical region (principal); E11.65 Type 2 diabetes mellitus with hyperglycemia; E11.9 Type 2 diabetes mellitus without complications; Z13.9 Encounter for screening, unspecified

== ENCOUNTER → 2024-10-22 15:18 | Outpatient (BNVA) | payer OTHER, SELFPAY | PROVIDERS: PCP Nurse Practitioner Family; Visit Provider Nurse Practitioner Family | DX: M54.12 Radiculopathy, cervical region (principal); E11.65 Type 2 diabetes mellitus with hyperglycemia | CPT/HCPCS: 83036; 96127; 99212 ==

== ENCOUNTER 2025-03-12 15:49 | Outpatient (AMB) | payer OTHER, SELFPAY ==
--- NOTE | 2025-03-12 15:51 | A.OFFVIS_ITS ---
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: No Information Interpreted: clinical only Accompanied by: Self / Same As Patient Allergies empagliflozin (From Jardiance) Adverse Reaction (Mild, Verified 03/12/25 15:54) Nausea Medication List - Last Reconciled 03/12/25 by Joselyn Hong LPN blood sugar diagnostic As directed fluoxetine 20 mg PO QAM 90 days FreeStyle Lite Strips (blood sugar diagnostic) Test blood sugar once a day NS insulin glargine (Lantus Solostar U-100 Insulin) 18 units (0.18 mL) subcut QPM losartan 25 mg PO DAILY metformin 1,000 mg PO BID pen needle, diabetic (BD Ultra-Fine Short Pen Needle) for diabetes, once a day tirzepatide (Mounjaro) 2.5 mg (0.5 mL) subcut QWEEK Followed by:: Joselyn Hong lpn Do you need a note to return to daycare/school/sports/work: No PFSH Medical History Screening for cervical cancer Acute respiratory failure Intra-abdominal abscess Trigger thumb, left thumb Cortical age-related cataract of both eyes Diabetes Depression Dyslipidemia Surgical History H/O thumb surgery Leg fracture, left History of tubal ligation History of section Family History Father History of heart attack CVD (cardiovascular disease) Mother Myocardial infarction S/P triple vessel bypass S/P knee replacement Hip fracture CVD (cardiovascular disease) Macular degeneration History of high blood pressure Brother Type 2 diabetes mellitus Sister Type 2 diabetes mellitus Sister Breast cancer Other Substance use disorder Social History Housing: Apartment Alcohol intake: current Patient Tobacco Use Status: Current everyday Tobacco user Tobacco use type: Cigarette Cigarettes Per Day: 1 e-Cigarette/Vaping Use: Never Used Second Hand Smoke Exposure: No Current occupational status: employed Cognitive needs: No Hearing needs: No Vision needs: Yes Female Reproductive History Menstrual Age of Menarche: 48 control method: permanent sterilization Total pregnancies: 3 Number of Living Children: 2 Ab spontaneous: 1 History of abnormal pap smear: No History of abnormal mammogram: No Physical Exam Vital Signs: Last Vital Signs BP 120/64 03/12/25 16:01 BMI result Body Mass Index 33.1 Assessment & Plan Assessment & Plan Orders: Orders HPV High risk Today Z01.419 - Encounter for gynecological examination (general) (routine) without abnormal findings Pap Smear Today Z01.419 - Encounter for gynecological examination (general) (routine) without abnormal findings Coding
--- OUTSIDE RECORDS SUMMARY | 2025-03-12 15:51 | XMS_ITS | Clinical Summary ---
Author Organization [facility] Address [address] [place] [address] Care Team Providers Care Search Consultant Name Role Phone Unavailable Primary Care Provider Unavailabl e Surgical History Surgery Date Site/Laterality Comments SECTION PROCEDURE: [place] DELIVERY ONLY CHOLECYSTECTOMY PROCEDURE: [place] LAPAROSCOPY SURG CHOLECYSTECTOMY Family History Medical History [...] 12/28/2015 Zoster Vaccines (1 of 2) 12/28/2015 COVID-19 Vaccine (2023-2 5 season) 2024 Influenza Vaccine (#1) 2025 RSV Immunization Adult Patie nts (1 - 1-dose 75+ series) 2040 HIB Vaccines Aged Out No longer eligi [...] age to complete this topic Meningococcal B Vaccine Aged Out No l onger eligible based on patient's age to complete this topic RSV Immunization Patients Un leanna 20 months Aged Out No longer eligible b ased on patient's age to complete this topic Varicella Vaccines Aged Out No longer eligible based on patient's age to complete this topic
[2025-03-12 16:01] VITALS: BP 120/64; BMI 33.1
--- NOTE | 2025-03-12 16:04 | MHC.OFFVIS ---
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 Allergies empagliflozin (From Jardiance) Adverse Reaction (Mild, Verified 03/12/25 15:54) Nausea Medication List - Last Reconciled 03/12/25 by Joselyn Hong LPN blood sugar diagnostic As directed fluoxetine 20 mg PO QAM 90 days FreeStyle Lite Strips (blood sugar diagnostic) Test blood sugar once a day NS insulin glargine (Lantus Solostar U-100 Insulin) 18 units (0.18 mL) subcut QPM losartan 25 mg PO DAILY metformin 1,000 mg PO BID pen needle, diabetic (BD Ultra-Fine Short Pen Needle) for diabetes, once a day tirzepatide (Mounjaro) 2.5 mg (0.5 mL) subcut QWEEK HPI Comments Details: Patient is a postmenopausal woman presenting for her new patient annual urogynaecologist examination. She is doing well with urogynaecologist concerns. Currently not sexually active. Denies any vaginal dryness or irritation. STI testing offered; she declines. Attempting to eat a healthy diet with calcium and vitamin D and stays active with exercise. Last pap smear; approx. 3yrs. ago, last one negative, one abnormal years. Last mammogram; 2020. ColoGard is UTD. Denies any family history of ovarian or colon cancer. FH breast cancer. [facility] Medical History Screening for cervical cancer Acute respiratory failure Intra-abdominal abscess Trigger thumb, left thumb Cortical age-related cataract of both eyes Diabetes Depression Dyslipidemia Surgical History H/O thumb surgery Leg fracture, left History of tubal ligation History of section Family History Father History of heart attack CVD (cardiovascular disease) Mother Myocardial infarction S/P triple vessel bypass S/P knee replacement Hip fracture CVD (cardiovascular disease) Macular degeneration History of high blood pressure Brother Type 2 diabetes mellitus Sister Type 2 diabetes mellitus Sister Breast cancer Other Substance use disorder Social History (Reviewed 03/12/25 @ 16:29 by EFRAIN Olea Housing: Apartment Alcohol intake: current Patient Tobacco Use Status: Current everyday Tobacco user Tobacco use type: Cigarette Cigarettes Per Day: 1 e-Cigarette/Vaping Use: Never Used Second Hand Smoke Exposure: No Current occupational status: employed Cognitive needs: No Hearing needs: No Vision needs: Yes Female Reproductive History Menstrual Age of Menarche: 48 control method: permanent sterilization Total pregnancies: 3 Number of Living Children: 2 Ab spontaneous: 1 Date of last pap smear: 09/08/20 History of abnormal pap smear: No Date of Mammogram: 09/21/20 History of abnormal mammogram: No Review of Systems Const All systems reviewed & are unremarkable except as noted in HPI and below Reports as per HPI Eyes Reports no additional complaints ENT Reports no additional complaints Card Reports no additional complaints Resp Reports no additional complaints GI Reports as per HPI and Reports no additional complaints Reports as per HPI Musc Reports no additional complaints Skin/Breast Reports as per HPI Neuro Reports no additional complaints Psych Reports no additional complaints Endo Reports no additional complaints Rafa/Lymph Reports no additional complaints Aller/Immun Reports no additional complaints Physical Exam Vital Signs: Last Vital Signs BP 120/64 03/12/25 16:01 BMI result Body Mass Index 33.1 Const General: cooperative, healthy appearing, no acute distress, well developed and alert Orientation/consciousness: patient oriented x3 HEENT Head: Yes normal to inspection Eyes General: appearance normal, both eyes and all related structures Neck Neck: Yes normal visual inspection Thyroid: Thyroid normal Chest Chest palpation & inspection: normal inspection of the chest and other (no puckering, dimpling, peau de orange, retraction, discharge, masses) Breast/axilla inspection: normal inspection of the breasts Breast/axilla palpation: normal palpation of the breasts Resp Effort & Inspection: normal respiratory effort GI Inspection: Yes normal to inspection Palpation (GI): Soft to palpation Rectal Exam - Female: deferred General: Yes bladder normal to palpation External Female Exam: normal external appearance and normal appearance of the urethra Speculum Exam - Vagina: normal appearance of the vagina, normal palpation and normal vaginal discharge Speculum Exam - Cervix: normal appearance of the cervix and normal palpation Bimanual exam- vagina & uterus: normal bimanual exam, normal palpation, uterine size normal, bladder normal to palpation, normal palpation and non-tender Bimanual Exam- Adnexa, other: no masses Skin General skin exam: no rashes or lesions noted Rashes: no rashes Neuro General: patient oriented x3 Cognition (Neuro): normal cognition Extrem General: Yes normal to inspection Psych Attitude: cooperative Thought process: Normal thought process present Assessment & Plan Assessment & Plan (1) Encounter for well woman exam with routine gynecological exam: Code(s): Z01.419 - Encounter for gynecological examination (general) (routine) without abnormal findings Category: Medical Plan Discussed: Current recommendations for pap smears per ASCCP guidelines. Breast awareness, periodic self breast exams and yearly mammogram. Maintain a healthy lifestyle, well balanced diet including Calcium 1,200 mg and Vitamin D 600 IU daily, and routine exercise. Use of condoms for STI prevention if indicated. Contact the office with any postmenopausal bleeding. Patient verbalizes understanding and agrees to the plan of care. She was given opportunity to ask questions and all questions were answered to the best of my ability. RTO in 1 year for annual urogynaecologist exam. This note is constructed using voice recognition software. 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 Orders: Orders HPV High risk Today Z01.419 - Encounter for gynecological examination (general) (routine) without abnormal findings Pap Smear Today Z01.419 - Encounter for gynecological examination (general) (routine) without abnormal findings Coding Level of Care Code New Pt Prev Care 40-64y(12981) Diagnoses Encounter for well woman exam with routine gynecological exam Z01.419
== END 2025-03-12 16:31 | disposition home or self-care (01) ==
LOC: HO.HWS 15:49
PROVIDERS: PCP Nurse Practitioner Family; Visit Provider Advanced Practice Midwife
DX: Z01.419 Encounter for gynecological examination (general) (routine) without abnormal findings (principal)
CPT/HCPCS: 99386; 99459

== ENCOUNTER 2025-03-12 15:49 | Outpatient (REF) | payer OTHER, SELFPAY | END 2025-03-12 15:50 | disposition home or self-care (01) | LOC: HO.LNP 15:49 | PROVIDERS: PCP Nurse Practitioner Family; Visit Provider Advanced Practice Midwife | DX: Z01.419 Encounter for gynecological examination (general) (routine) without abnormal findings (principal); Z11.51 Encounter for screening for human papillomavirus (HPV); Z78.0 Asymptomatic menopausal state; Z98.51 Tubal ligation status; Z79.899 Other long term (current) drug therapy | CPT/HCPCS: 87626; 88175; 99386 ==

== ENCOUNTER 2025-05-29 10:46 | Outpatient (AMB) | payer OTHER, SELFPAY ==
--- NOTE | 2025-05-29 10:58 | A.OFFPC_ITS ---
Vital Signs 05/29/25 11:01 Height 5 ft 3 in Weight 188 lb BMI 33.3 BP 130/76 Blood Pressure Location Rt brachial Position Sitting Respiration 16 Pulse 83 Pulse Source Pulse Oximeter Temp 98.9 F Temp Source Oral Pulse Oximetry (%) 98 Oxygen Delivery Method Room Air Intake Visit Reasons: Annual PE/DM follow up Orthotics Prosthetics Assistant Required: No Accompanied by: Self / Same As Patient Allergies empagliflozin (From Jardiance) Adverse Reaction (Mild, Verified 05/29/25 11:04) Nausea Medication List - Last Reconciled 05/29/25 by Quentin Cervantes [facility] blood sugar diagnostic As directed dulaglutide (Trulicity) 0.75 mg (0.5 mL) subcut QWEEK fluoxetine 20 mg PO QAM 90 days FreeStyle Lite Strips (blood sugar diagnostic) Test blood sugar once a day NS insulin glargine (Lantus Solostar U-100 Insulin) 24 units (0.24 mL) subcut QPM losartan 25 mg PO DAILY metformin 1,000 mg PO BID pen needle, diabetic (BD Ultra-Fine Short Pen Needle) for diabetes, once a day Tobacco use date assessed: 05/29/25 Dental Screening Dental Screen Date: 05/29/25 Did you have a dental visit in the last 12 months?: Yes Did you have a dental problem in the last 6 months where you did not have access to dental care?: No Was dental information given to patient?: Patient has dentist HPI Annual PE/DM follow up HPI Details History of Present Illness The patient is a 59-year-old female presenting with a physical examination and diabetes follow-up. She has a history of diabetes mellitus, currently uncontrolled with a hemoglobin A1c of 9.1%. Previously, her diabetes was better managed with Trulicity, which will be resumed due to a shortage of Mounjaro. Her insulin dosage will be increased to 24 units of long-acting insulin. The patient recently sustained a left ankle fracture one week ago and is currently in a large boot cast. She is using crutches and is following up with orthopedics for this injury. She is a smoker and a referral for a low-dose CT scan of the lungs was previously placed, but she reports she has not been contacted by the program. Her lung examination revealed clear lungs upon auscultation. Preventative care measures include an up-to-date colon cancer screening and a mammogram order placed today. Health Maintenance - Mammogram ordered - Colon cancer screening up to date - Referral for low-dose CT scan of lungs due to smoking history Social History - Tobacco use: Smoker Review of Systems - Neurological: Denies neuropathy - Respiratory: Denies cough, hemoptysis, or wheezing -denies any fevers, chills, n/v, cp, sob , abd pain, constipation, diarrhea, si or hi Physical Exam General: Cooperative, healthy appearing, comfortable, no acute distress and well developed, obese Orientation: Patient oriented x3 Limitations: No limitations Head: Normal to inspection Ears: Hearing grossly normal bilaterally Nose: Normal external nose present Face and sinus: Normal facial exam Eyes: Appearance normal, both eyes and all related structures Neck: Normal visual inspection and Yes full ROM Respiratory: Normal respiratory effort and able to speak in complete sentences. Clear to auscultation bilaterally Cardiovascular: Regular rate and rhythm. Normal S1 and S2 GI: Normal to inspection. Soft to palpation and nontender Skin: No rashes or lesions noted Neuro: Patient oriented x3, + sensation with monofilament to RLE, intact Extremities: Left ankle in a large velcro cast, patient using crutches. Results 9.1 a1c Plan 1. Diabetes Mellitus, Uncontrolled The patient's diabetes is currently uncontrolled with a hemoglobin A1c of 9.1%. Due to a shortage of Mounjaro, Trulicity will be resumed as it previously provided better control of her diabetes. Her insulin dosage will be increased to 24 units of long-acting insulin to improve glycemic control. 2. Left Ankle Fracture The patient sustained a left ankle fracture one week ago and is currently in a large boot cast. She is using crutches and is following up with orthopedics for further management of this injury. 3. Tobacco Use Disorder The patient is a smoker and a referral for a low-dose CT scan of the lungs was previously placed. She has not been contacted by the program for the CT scan, and follow-up is needed to ensure completion of this screening. Discussion Notes During the visit, we discussed the management of the patient's uncontrolled diabetes, including resuming Trulicity and increasing her insulin dosage to 24 units. We also reviewed her recent left ankle fracture and the need for orthopedic follow-up. Additionally, we addressed her smoking history and the importance of completing the low-dose CT scan for lung screening. Patient Instructions - Resume Trulicity as prescribed. - Increase insulin dosage to 24 units as directed. - Follow up with orthopedics for ankle f racture management. - Ensure completion of low-dose CT scan for lung screening. [facility] Medical History Screening for cervical cancer Acute respiratory failure Intra-abdominal abscess Trigger thumb, left thumb Cortical age-related cataract of both eyes Diabetes Depression Dyslipidemia Surgical History H/O thumb surgery Leg fracture, left History of tubal ligation History of section Family History Father History of heart attack CVD (cardiovascular disease) Mother Myocardial infarction S/P triple vessel bypass S/P knee replacement Hip fracture CVD (cardiovascular disease) Macular degeneration History of high blood pressure Brother Type 2 diabetes mellitus Sister Type 2 diabetes mellitus Sister Breast cancer Other Substance use disorder Social History Housing: Apartment Alcohol intake: current Patient Tobacco Use Status: Current everyday Tobacco user Tobacco use type: Cigarette Cigarettes Per Day: 1 e-Cigarette/Vaping Use: Never Used Second Hand Smoke Exposure: No Current occupational status: employed Cognitive needs: No Hearing needs: No Vision needs: Yes Female Reproductive History Menstrual Age of Menarche: 48 Questionnaire PHQ-9 Over the last 2 weeks, how often have you been bothered by any of the following problems? 2. Feeling down, depressed, or hopeless: not at all 3. Trouble falling or staying asleep, or sleeping too much: not at all 4. Feeling tired or having little energy: not at all 5. Poor appetite or overeating: not at all 6. Feeling bad about yourself - or that you are a failure or have let yourself or your family down: not at all 7. Trouble concentrating on things, such as reading the newspaper or watching television: not at all 8. Moving or speaking so slowly that other people could have noticed. Or the opposite - being so fidgety or restless that you have been moving around a lot more than usual: not at all 9. Thoughts that you would be better off or of hurting yourself in some way: not at all Depression Screening Interpretation: Negative Depression Screening Done: Yes 46166 - PHQ-9 Billing: Yes Source: Developed by Drs. Edgardo Lazar, Charles Armando and colleagues, with an educational patel from [employer]. Thrive Questionnaire Date Thrive assessed: 10/22/24 I am a: Patient What is your living situation today?: I have a steady place to live Within the past 12 months, did the food you bought not last and you didn't have the money to get more?: Sometimes True Within the past 12 months, did you worry whether your food would run out before you got money to buy more?: Sometimes True Do you have trouble paying for medicines?: No Do you have trouble getting transportation to medical appointments?: No Do you have trouble paying your heating and electricity bill?: No Do you have trouble taking care of your child, family member or friend?: No Do you have trouble with day-to-day activities such as bathing, preparing meals, shopping, managing finances, etc.?: No Are you currently unemployed and looking for a job?: No Are you interested in more education?: No Please select the resources that you would like help with: None Currently or been in a relationship where the following occur: No concerns reported THRIVE Score: 2 EDDIE-7 AMB Questionnaire EDDIE-7 Date EDDIE - 7 assessed: 05/29/25 Feeling nervous, anxious, or on edge: 0 = Not at all Not being able to stop or control worryin = Not at all Worrying too much about different things: 0 = Not at all Trouble relaxin = Not at all Being so restless that it is hard to sit still: 0 = Not at all Becoming easily annoyed or irritable: 0 = Not at all Feeling afraid as if something awful might happen: 0 = Not at all Total EDDIE-7 score (0-4 normal; 5-9 mild; 10-14 moderate; 15-21 severe): 0 Source: Developed by Drs. Edgardo Lazar, Charles Armando and colleagues, with an educational patel from [employer] EDDIE-7 Assessment Billing EDDIE-7 Assessment Tool: EDDIE-7 Assessment 31604 Physical exam (Primary Care) Vital Signs: Last Vital Signs Temp 98.9 F 05/29/25 11:01 Pulse 83 05/29/25 11:01 Resp 16 05/29/25 11:01 BP 130/76 05/29/25 11:01 Pulse Ox 98 05/29/25 11:01 Oxygen Delivery Method Room Air 05/29/25 11:01 BMI result Body Mass Index 33.3 Tobacco/Smoking Status: Tobacco use Status Tobacco use date assessed 05/29/25 05/29/25 11:10 Patient Tobacco Use Status Current everyday Tobacco 05/29/25 11:00 Tobacco use type Cigarette 05/29/25 11:00 e-Cigarette/Vaping Use Never Used 05/29/25 11:00 Depression Screening Interpretation: Negative Thrive Assessment: Date of Thrive Assessment Date Thrive assessed 10/22/24 05/29/25 11:00 Currently or been in a relationship where the following occur: No concerns reported Coding Level of Care Code Est Pt Level 3 (50065) Est Pt Prev Care 40-64y(58663) Diagnoses Encounter for routine adult physical exam with abnormal findings Z00. Uncontrolled diabetes mellitus with hyperglycemia E11.65 Additional Codes EDDIE-7 Assessment Billing - EDDIE-7 Assessment Tool: EDDIE-7 Assessment 05385 ([id number]) PHQ-9 - 71915 - PHQ-9 Billing: Yes ([id number]) Assessment & Plan Assessment & Plan (1) Encounter for routine adult physical exam with abnormal findings: Code(s): Z00.01 - Encounter for general adult medical examination with abnormal findings Category: Medical (2) Uncontrolled diabetes mellitus with hyperglycemia: Code(s): E11.65 - Type 2 diabetes mellitus with hyperglycemia Category: Medical Plan . Orders: Orders MM screening mammo BI Today Z12.31 - Encounter for screening mammogram for malignant neoplasm of breast Complete Blood Count Auto Diff Today E11.65 - Type 2 diabetes mellitus with hyperglycemia, Z00.01 - Encounter for general adult medical examination with abnormal findings Comprehensive [place]. Panel Fast Today E11.65 - Type 2 diabetes mellitus with hyperglycemia, Z00.01 - Encounter for general adult medical examination with abnormal findings UA CC w/rflx Micro + Cult Today E11.65 - Type 2 diabetes mellitus with hyperglycemia, Z00.01 - Encounter for general adult medical examination with abnormal findings TSH reflex Free T4 Today E11.65 - Type 2 diabetes mellitus with hyperglycemia, Z00. - Encounter for general adult medical examination with abnormal findings Lipid Panel Today E11.65 - Type 2 diabetes mellitus with hyperglycemia, Z00.01 - Encounter for general adult medical examination with abnormal findings Microalbumin, Random (w Creat) Today E11.65 - Type 2 diabetes mellitus with hyperglycemia Medications: New dulaglutide (Trulicity) 0.75 mg (0.5 mL) subcut QWEEK 2 mL 0RF Changed From insulin glargine (Lantus Solostar U-100 Insulin) 18 units (0.18 mL) subcut QPM 15 mL 0RF To insulin glargine (Lantus Solostar U-100 Insulin) 24 units (0.24 mL) subcut QPM 15 mL 0RF Discontinued tirzepatide (Mounjaro) for 4 weeks Discontinued Reason: Doctor's Order 2.5 mg (0.5 mL) subcut QWEEK 2 mL 1RF
[2025-05-29 11:01] VITALS: BP 130/76; PULSE 83; RESP 16; TEMP 37.2; O2SAT 98; BMI 33.3
--- OUTSIDE RECORDS SUMMARY | 2025-05-29 12:36 | XMS_ITS | Clinical Summary ---
Author Organization [facility] Address [address] [place] [address] Care Team Providers Care Booking Manager Name Role Phone Unavailable Primary Care Provider Unavailabl e Surgical History Surgery Date Site/Laterality Comments SECTION PROCEDURE: [place] CHOLECYSTECTOMY PROCEDURE: [place] LAPAROSCOPY SURG CHOLECYSTECTOMY Family History Medical History [...] 12/28/2015 Zoster Vaccines (1 of 2) 12/28/2015 Depression Screening 08/28/2024 COVID-19 Vaccine (2023-2 5 season) 2025 Influenza Vaccine (#1) 2025 RSV Immunization Adult [...]
== END 2025-05-29 12:17 | disposition home or self-care (01) ==
PROVIDERS: PCP Nurse Practitioner Family; Visit Provider Nurse Practitioner Family
DX: Z00.01 Encounter for general adult medical examination with abnormal findings (principal); E11.65 Type 2 diabetes mellitus with hyperglycemia

== ENCOUNTER → 2025-05-29 10:46 | Outpatient (BNVA) | payer OTHER, SELFPAY | PROVIDERS: PCP Nurse Practitioner Family; Visit Provider Nurse Practitioner Family | DX: Z00.01 Encounter for general adult medical examination with abnormal findings (principal); E11.65 Type 2 diabetes mellitus with hyperglycemia; S82.892D Other fracture of left lower leg, subsequent encounter for closed fracture with routine healing; F17.210 Nicotine dependence, cigarettes, uncomplicated; X58.XXXD Exposure to other specified factors, subsequent encounter | CPT/HCPCS: 83036; 96127; 99212; 99396 ==